=== PATIENT | female | born 1955 | race Hispanic/Latino ===

== ENCOUNTER 2025-10-11 07:36 | Outpatient (CLI) | payer MEDICARE, BC | END 2025-10-11 07:37 | disposition home or self-care (01) | LOC: CSHULT 07:36 | PROVIDERS: ATTEND Nurse Practitioner Family | DX: R10.13 Epigastric pain (principal); K76.0 Fatty (change of) liver, not elsewhere classified | CPT/HCPCS: 76705 ==